=== PATIENT | male | born 1950 | race Caucasian/White ===

== ENCOUNTER → 2019-09-10 | Outpatient (CLI) | payer OTHER, MEDICARE ==
--- NOTE | 2019-09-10 08:13 | MR ---
EXAMINATION TYPE: MR brain wo/w con DATE OF EXAM: 09/10/2019 COMPARISON: NONE HISTORY: Lung CA , headaches TECHNIQUE: Multiplanar, multisequence images of the brain and brainstem is performed without and with IV contras t, utilizing 9 mL intravenous Gadavist . FINDINGS: Diffusion weighted images demonstrate no evidence of a recent infarct or other diffusion ab normality. There is no extra-axial fluid collection. There are few foci of T2/FLAIR hyperintensity w ithin the subcortical white matter and within the periventricular white matter, most commonly on the basis of chronic microangiopathy. This is mild burden for the patient's age. The ventricular system a nd cisternal spaces are symmetrically prominent compatible with age-related volume loss. Midline structures demonstrate normal morphology. There is a nonenhancing 4 mm incidentally noted pin eal gland cyst without mass effect on the superior tectum. No hydrocephalus seen. The craniocervical junction appears within normal limits. Post contrast images demonstrate no abnormal enhancement. The right vertebral artery is dominant. The dural venous sinuses appear patent. The visualized sinuses d emonstrate minimal mucosal thickening in the ethmoid and maxillary sinuses. Remaining paranasal sinus es and mastoid air cells are well aerated. Orbits are symmetric and unremarkable. IMPRESSION: 1. No evidence of intracranial metastasis. 2. No acute infarct, midline shift or mass effect. 3. Mild burden nonspecific white matter change, most commonly on the basis of chronic microangiopathy .
== END | disposition home or self-care (01) ==
LOC: RADMRIMAIN 07:11
PROVIDERS: ATTEND Internal Medicine Hematology & Oncology
DX: R90.89 Other abnormal findings on diagnostic imaging of central nervous system (principal); C34.31 Malignant neoplasm of lower lobe, right bronchus or lung; R51 Headache
CPT/HCPCS: 70553; A9585

== ENCOUNTER → 2019-12-06 | Outpatient (CLI) | payer MEDICARE, OTHER ==
--- NOTE | 2019-12-06 13:28 | XR ---
EXAMINATION TYPE: XR chest 2V DATE OF EXAM: 12/06/2019 COMPARISON: NONE HISTORY: Prior history of small and large cell lung cancer, upper extremity pain TECHNIQUE: Frontal and lateral views of the chest are obtained. FINDINGS: There is tenting of the right hemidiaphragm and blunting of the right costophrenic angle t hat could relate to posttreatment change however no priors are available for comparison. The left sky g remains well aerated. Minimal biapical pleural-parenchymal thickening. Cardiomediastinal silhouette is mildly enlarged. Surgical clips are noted in the left upper quadrant. Mild degenerative changes o f the spine. IMPRESSION: Tenting of the right hemidiaphragm and blunting of the right costophrenic angle may rela te to post therapy change however no priors are available for comparison. Correlate with any prior ou tside images as alternatively this could represent a trace pleural effusion and possible atelectasis or pneumonia.
--- NOTE | 2019-12-06 14:43 | US ---
EXAMINATION TYPE: US venous doppler duplex UE RT DATE OF EXAM: 12/06/2019 COMPARISON: NONE CLINICAL HISTORY: M79.622. Chemo patient. Forearm redness. On baby aspirin. SIDE PERFORMED: Right Grayscale, color doppler, spectral doppler imaging performed of the deep veins of the upper extremiti es. There is normal flow, compressibility and vascular waveforms. However at the area of tenderness in the right superficial mid forearm there is noncompression of the superficial vein. Right Arm: Negative for DVT. Positive for SVT at mid forearm in area of redness. IMPRESSION: Superficial venous thrombosis in the area of pain and redness of the right forearm. No so nographic evidence of deep venous thrombosis of the right upper extremity in its visualized portions.
== END | disposition home or self-care (01) ==
LOC: RADUSWWP 12:17
PROVIDERS: ATTEND Nurse Practitioner Adult Health
DX: I82.612 Acute embolism and thrombosis of superficial veins of left upper extremity (principal); C34.91 Malignant neoplasm of unspecified part of right bronchus or lung; C34.31 Malignant neoplasm of lower lobe, right bronchus or lung; Z71.3 Dietary counseling and surveillance
CPT/HCPCS: 71046

== ENCOUNTER → 2020-09-23 | Outpatient (CLI) | payer MEDICARE, OTHER | END | disposition home or self-care (01) | LOC: CPPFTMAIN 10:31 | PROVIDERS: ATTEND Internal Medicine Critical Care Medicine | DX: J44.9 Chronic obstructive pulmonary disease, unspecified (principal); R94.2 Abnormal results of pulmonary function studies | CPT/HCPCS: 94060; 94726; 94729 ==